=== PATIENT | male | born 2000 | race Caucasian/White ===

== ENCOUNTER 2024-10-31 14:17 | Inpatient (IN) | payer OTHER, SELFPAY ==
[2024-10-31 15:18] VITALS: BMI 24.7
--- OUTSIDE RECORDS SUMMARY | 2024-10-31 15:19 | XMS_ITS | Encounter Summary ---
Author Organization [facility] Address [address] [place] [address] Care Team Providers Care Stoner Out Name Role Phone PcpZeb MD Primary Care Provider [phone] Encounter Details Date Type Department Care Team (Late st Contact Info) Description 08/01/2023 Scan Document - View in Chart [facility] Department [address] [place] [address] Provider, MD Roberto [address] [place] [id number] Social History Tobacco Use Types Packs/Day Years Used Date Smoking Tobacco: Never Assessed Sex and Gender Information Value Date Recorded Sex Assigned at Male 05/27/2023 7:10 AM EDT Legal Sex Male 6:32 AM EDT Gender Identity Male 05/27/2023 7:10 AM EDT Sexual Orientation Straight 05/27/2023 7: 10 AM EDT documented as of this encounter Plan of Treatment Not on file documented as of this encounter Visit Diagnoses Not on filedocumented in this encounter Care Teams Stoner Out Relationship Specialty Start Date End Date PcpZeb MD [address] [place] [address] PCP - General Internal Medicine 05/27/23 documented as of this encounter
--- OUTSIDE RECORDS SUMMARY | 2024-10-31 15:19 | XMS_ITS | Clinical Summary ---
Author Organization [facility] Address [address] [place] [address] Care Team Providers Care Director Nursing Service Name Role Phone Unavailable Primary Care Provider Unavailabl e Social History Tobacco Use Types Packs/Day Years Used Date Smoking Tobacco: Never Assessed Sex and Gender Information Value Date Recorded Sex Assigned at Not on file Legal Sex Male 6:32 AM EDT Gender Identity Not on file Sexual Orientation Not on file Plan of Treatment Not on file
--- OUTSIDE RECORDS SUMMARY | 2024-10-31 15:19 | XMS_ITS | Clinical Summary ---
Author Organization [facility] Address [address] [place] [address] Phone Care Team Providers Care Broadcast Transmitter Operator Name Role Phone Required, No Pcp/Pcp Not Primary Care Provider U navailable Allergies No known active allergies Active Problems Problem Noted Date Diagnosed Date Opioid abuse, continuous 03/28/2023 Social History Tobacco Use Types Packs/Day Years Used Date Smoking Tobacco: Never Assessed Sex and Gender Information Value Date Recorded Sex Assigned at Not on file Legal Sex Male 7:48 PM EST Gender Identity Not on file Sexual Orientation Not on file Last Filed Vital Signs Vital Sign Reading Time Taken Comments Blood Pressure 123/64 03/02/2023 1:59 PM EST Pulse 65 03/02/2023 1:59 PM EST Temperature 36.9 C (98.4 F) 03/02/2023 1:59 PM EST Respiratory Rate 16 03/02/2023 1:59 PM EST Oxygen Saturation 97% 03/02/2023 1:59 PM EST Inhaled Oxygen Concentration - - Weight 69.9 kg (154 lb 1.6 oz) 03/01/2023 8:19 P M EST Height - - Body Mass Index - - Plan of Treatment Health Maintenance Due Date Last Done Comments [facility] Topic HIV Screening 2002 [facility] Topic Hepatitis C Screening 2002 [facility] Topic HPV Vaccines (1 - Male 3-dose series) 2017 [facility] Topic Meningococcal G roup B Conjugate Vaccine (1 of 2 - Standard) 2018 [facility] Topic Tdap Vaccine (1 - Tdap) 2021 [facility] Topic Lipid Profile 5 years 2024 [facility] Topic Influenza (Flu) Seasonal (#1) 2024 [facility] Topic Shingrix (1 of 2) 2052 [facility] Topic HIB Vaccines Completed 2003, 01/25/2003, 2002, Additional history exists Insurance [employer] PPO Care Teams Broadcast Transmitter Operator Relationship Specialty Start Date End Date Required, No Pcp/Pcp Not [address] [place] [address] PCP - General Water Resource Agent 03/01/23
--- OUTSIDE RECORDS SUMMARY | 2024-10-31 15:19 | XMS_ITS | Clinical Summary ---
Author Organization [facility] Address [address] [place] [address] Phone Care Team Providers Care Product Marketing Director Name Role Phone Pcp, Not Required Primary Care Provider Unavaila ble Allergies No known active allergies Medications bupropion HCl (WELLBUTRIN ORAL) Take 200 mg by mouth daily. Active dextroamphetamin e-amphetamine (ADDERALL) 10 mg Tab tablet Take 10 mg by mouth daily. Active escitalopram oxalate (LEXAPRO) 10 MG tablet Take 10 mg by mouth daily. Active Active Problems Problem Noted Date Diagnosed Date Toxic encephalopathy 01/11/2024 Assessment & Plan (01/11/2024 3:05 AM EDT): Close monitoring and treatment of agitation Psychiatry consult Suicidal ideation 01/11/2024 Assessment & Plan (01/11/2024 3:13 AM EDT): On arrival patient reported using the substances to kill himself and wanting to . History changed multiple times. Endorsed feelings of wanting to coming and going but just wanting to get high. - Psychiatry consult to assess need for placement and safe discharge planning. Overdose of sympathomimetic agent 01/10/2024 Assessment & Plan (01/11/2024 3:04 AM EDT): Jarrod is a 23 yo M with hx of depression and possible schizoaffective disorder on Seroquel. He reports ingesting an unknown stimulant this morning and feeling anxious and heart racing. He ultimately presented to ED for persistence of symptoms. He required significant amounts of Ativan which did not have sedative affect. Twelve hours after arrival and after 5 doses of Ativan 2mg heart rate decreased to 100. Blood pressure remains elevated. He became more agitated and physically combative requiring restraints, Haldol, and an additional dose of Ativan - Repeat EKG and CK - Continue Ativan as needed for goal HR < 120 and BP < 160 and for agitation - Reassess need for restraints frequently and remove as soon as patient is not a threat to self and others Central nervous system stimu lant overdose, undetermined intent, initial encounter 09/18/2022 Assessment & Plan (09/18/2022 7:38 PM EDT): Jarrod is a 22 y.o. male with history of ADHD (on Aderral), generalized anxiety, social anxiety, and anxiety tic disorder who is admitted for cardiac monitoring following intentional ingestion of Propylhexedrine (7 bottles of 200mg) taking over the course of about 7 hours, preceded by caffeine ingestion. He reports recreational intentional ingestion, denies SI. Case discussed with ED attending and poison control. Poison control recommended monitoring on telemetry until his HR is normalized, they anticipate that he will continue to improve without worsening or new symptoms. They would not anticipate arrhythmias, or QTc/QRS changes at this time. - He has been monitored for >12 hours in the emergency room with improvement in his HR, BP, and agitation. - Potassium initially low, repleted and normalized, consider recheck in AM - EKG x2 in ED, admit on telemetry - s/p 3L fluids in ED, admit on mIVF with KCl - Ativan 1mg PO PRN - Hold Wellbutrin, Hold Aderral Section 12 placed in ED with sitter, will have psychiatry consult regarding disposition. Consider substance use counseling/referral in AM. Attention deficit hyperactivity disorder 014 Overview (05/04/2014): Attention deficit hyperactivity disorder Immunizations Immunization Administration Dates Next Due BCG 2002 DT 08/15/2006 DTaP, unspecified formulation 07/31/2013 ,01/08/2004,01/25/2003,11/22,2002 Hepatitis B, unspecified formulation 01/27/2003, 2002,2002 Hib, unspecified formulation 01/08/2004, 01/25/2003,2002,09/22 Influenza Nasal, Unspecified Formulation 02/05/2014 Influenza Quadrivalent Prese rvative Free IM 11/14/2014 MMR 08/15/2006,07/15/2003 Meningococcal MCV4P 11/14/2014 Pneumococcal, Unspecified Formulation 06/08/2005 Polio, Unspecified Formulation 4,01/08/2004,06/27/2003,01/25,2002,2002,2002 Varicella 10/04/2014,10/08/2003 Social History Tobacco Use Types Packs/Day Years Used Date Smoking Tobacco: Never Assessed Digital Access Answer Date Recorded No 09/18/2022 No 09/18/2022 Reliable internet access at home? Not on file 09/18/2022 Device with a working camera? Not on file Intimate Partner Violence Answer Date R ecorded Are you denied basic needs s uch as food, clothing, or medical care? No 07/29/2024 In the past 12 months have y ou been in a relationship with a person who hurts, threatens, or tries to control you? No 07/29/2024 Are you denied basic needs s uch as food, clothing, or medical care? No 07/29/2024 In the past 12 months have y ou been in a relationship with a person who hurts, threatens, or tries to control you? No 07/29/2024 Sex and Gender Information Value Date Recorded Sex Assigned at Male 01/10/2024 1:40 PM EDT Legal Sex Male 3:26 PM EDT Gender Identity Male 01/10/2024 1:40 PM EDT Sexual Orientation Straight 01/10/2024 1: 40 PM EDT Last Filed Vital Signs Vital Sign Reading Time Taken Comments Blood Pressure 134/64 07/29/2024 9:27 AM EDT Pulse 100 07/29/2024 9:27 AM EDT Temperature 36.9 C (98.4 F) 07/29/2024 6:18 AM EDT Respiratory Rate 16 07/29/2024 9:27 AM EDT Oxygen Saturation 99% 07/29/2024 9:27 AM EDT Inhaled Oxygen Concentration - - Weight 70.3 kg (155 lb) 01/10/2024 1:15 PM EDT Height 177.8 cm (5' 10 ) 11/13/2022 2:35 PM EDT Body Mass Index 22.24 11/13/2022 2:35 PM EDT Plan of Treatment Health Maintenance Due Date Last Done Comments Adult Td,Tdap Booster 2002 DEPRESSION SCREENING 2014 SMOKING Hx and SMOKELESS TOBACCO SCREENING 07/05/2015 HPV VACCINES (1 - Male 3-dose series) 2017 MENINGOCOCCAL VACCINES (B) (1 of 2 - Standard) 2018 HEPATITIS C SCREENING 2020 HIV ONE-TIME SCREENING (18-65 YEARS) 2020 COVID-19 VACCINE ( season) 2023 HIB VACCINES Completed 01/08/2004, 01/12, 2002, Additional history exists PNEUMOCOCCAL VACCINES (0-49 years) Aged Out 06/08/2005 No longer eligible based on patient's age to complete this topic MENINGOCOCCAL VACCINES (ACWY) Aged Out 11/14/2014 No longer eligible based on patient's age to complete this topic HEPATITIS A VACCINES Aged Out No long er eligible based on patient's age to complete this topic Medical Devices Not on file Insurance Social Tables [facility]PO [facility] [place]PO [place] [facility] [place] Advance Directives For more information, please contact: [phone] (9AM - 5PM [facility], Tuesday-Tuesday) * Full Code (Latest Code Status on File) Date Activated Date Inactivated Comments 09/18/2022 9:49 PM Question Answer Comments Code Status Confirmed With: Patient Code Status Communicated To: Inpatient Attending Care Teams Product Marketing Director Relationship Specialty Start Date End Date Pcp, Not Required [address] [place] [id number] PCP - General 01/10/24 Additional Source Comments The information contained in this document represents components of the legal health record. It is not the complete legal health record.[facility]
--- OUTSIDE RECORDS SUMMARY | 2024-10-31 15:19 | XMS_ITS | Clinical Summary ---
Author Organization [facility] Address [address] [place] [address] Care Team Providers Care Branner Machine Tender Name Role Phone No, Pcp SPINNING SUPERVISOR Primary Care Provider Unavailabl e Allergies No known active allergies Medications No known medications Immunizations Name Administration Dates Next Due Flucelvax Trivalent PFS IM; Without Preservative (18+ mos) 12/28/2021 Gardasil 9 Prefilled Syringe 12/28/2021 Social History Tobacco Use Types Packs/Day Years Used Date Smoking Tobacco: Never Smokeless Tobacco: Never Alcohol Use Standard Drinks/Week Comments No 0 (1 standard drink = 0.6 oz pur e alcohol) Sex and Gender Information Value Date Recorded Sex Assigned at Not on file Legal Sex Male 3:30 PM EDT Gender Identity Not on file Sexual Orientation Not on file Last Filed Vital Signs Vital Sign Reading Time Taken Comments Blood Pressure 92/50 09/07/2017 4:59 PM EDT Pulse 69 09/07/2017 4:59 PM EDT Temperature 36.3 C (97.3 F) 09/07/2017 4:59 PM EDT Respiratory Rate 14 09/07/2017 4:59 PM EDT Oxygen Saturation 97% 09/07/2017 4:59 PM EDT Inhaled Oxygen Concentration - - Weight 59.4 kg (131 lb) 09/07/2017 4:59 PM EDT Height 172.7 cm (5' 8 ) 09/07/2017 4:59 PM EDT Body Mass Index 19.92 09/07/2017 4:59 PM EDT Plan of Treatment Health Maintenance Due Date Last Done Comments Depression: Screening Annual ly using PHQ-2/9 in Adults 18 yrs or above (or HM Modifier)([facility]) 2020 Hepatitis C Virus Infection in Adolescents and Adults: Screening (or Modifier) ([facility]) 2020 SDOH Screening Reminder: Annually for all adults ([facility]) 2020 Tobacco Smoking Cessation: i n Adults excluding Women: Behavioral and Pharmacotherapy Interventions ([facility]) 2020 DTaP/Tdap/Td Vaccines ([facility]) (1 - Tdap) 2021 08/15/2006 COVID-19 Vaccine Screening: Initial Series and Booster Status ([facility]) ( - 2023- season) 2023 Flu Vaccination: Yearly for ages 18mos through 64 years (or Modifier)([facility]) 10/12/2024 12/28/2021 Zoster/Shingles Vaccine Seri es Screening: Adults aged 18+ yrs (or HM Modifiers)([facility]) (1 of 2) 2052 10/04/2014, 10/08/2003 Pneumococcal Vaccination Screening: Pts 0-19 & 19-49 yrs of age ([facility]) Aged Out No longer eligible based on patient's age to complete this topic Medical Devices Not on file Insurance [employer] Care Teams Branner Machine Tender Relationship Specialty Start Date End Date No, Pcp, SPINNING SUPERVISOR N/A Do not use PCP - General 09/07/17
[2024-10-31 16:15] VITALS: BP 120/79; PULSE 85; RESP 16; TEMP 36.6; O2SAT 98
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
[2024-10-31 20:00] VITALS: BP 129/61; PULSE 91; TEMP 36.4; O2SAT 98
[2024-10-31] MEDS: Buprenorphine/Naloxone 4/1 mg FILM 1 FILM BUCCAL (21:45)
[2024-11-01 07:00] VITALS: BMI 25.1
[2024-11-01 08:00] VITALS: BP 149/76; PULSE 60; RESP 16; TEMP 36.7; O2SAT 97
[2024-11-01 08:39] LABS: Hemoglobin A1C 134.0101 umol/L; Total Hemoglobin (HGBA1C) 4036.9904 umol/L
[2024-11-01 08:43] LABS: Alanine Aminotransferase 110 U/L (0-40); Albumin Level 4.7 g/dL (3.5-5.0); Alkaline Phosphatase 55 U/L (39-117); Anion Gap 12 (12-20); Aspartate Amino Transferase 43 U/L (5-37); Blood Urea Nitrogen 13 mg/dL (9-16); Calcium 9.5 mg/dL (8.4-10.2); Carbon Dioxide 28 mmol/L (22-29); Chloride 106 mmol/L (96-108); Cholesterol 134 mg/dL (<200); Creatinine Clr Calc Pharmacy 111.8; Estimated Glomerular Filt Rate > 60; HDL Cholesterol 46 mg/dL (>40); Potassium 4.1 mmol/L (3.3-5.1); Sodium 142 mmol/L (135-145); Total Protein 7.0 g/dL (6.5-8.0); Triglycerides 83 mg/dL (<150)
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
[2024-11-01 10:59] LABS: Free T4 (Free Thyroxine) 1.15 ng/dL (0.71-1.85)
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
[2024-11-01 20:00] VITALS: BP 125/70; PULSE 78; RESP 16; TEMP 36.4; O2SAT 99
[2024-11-01] MEDS: Buprenorphine/Naloxone 4/1 mg FILM 1 FILM BUCCAL (20:54)
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
[2024-11-02 08:00] VITALS: BP 118/57; PULSE 74; RESP 16; TEMP 36.4; O2SAT 95
--- NOTE | 2024-11-02 10:00 | P.PNPSI_ITS ---
Subjective Subjective Date of Service: 11/02/24 Reason For Visit: depression, unspecified Subjective Notes: Conditional Voluntary Medical Problems Affecting Mental Status: No Interim History: Pt slept six hours last night. discussed request to increase suboxone. Appears ambivalent about this-changed his mind frequently during this discussion. Asks to increase to 6 mg. Will asks addiction medicine to consult to further discuss with pt. Pt will do a phone screen for his next program, he appears reluctant to make this call however tells team he will complete it today with [facility]. Presentation overall is quiet, calm, withdrawn Medication Compliance: Yes Side effects from medications: No Attending Groups: Intermittent Review of Systems Acute medical concerns: No Medical Review of Systems: unchanged Review of Systems Review of Systems Denies Mental Status Exam Mental Status Exam Patient Appearance: Appropriate Patient Orientation: Person, Place, Time and Situation Level of Consciousness: Alert Patient Behavior: Passive, Distractible and Isolative Mood Description: Withdrawn and Blunted Affect Description: Withdrawn and Blunted Patient Cognition Impaired: No Ability to Follow Directions: Fair Speech Pattern: Spontaneous Speech Memory Description: Episodic Impaired Hallucinations: None Delusions: Not Present Perceptual Disturbances: Derealization Thought Process: Distracted Thought Content: positive for Circumstantial and positive for Suicidal Ideation (denies) Judgement: Fair Diagnostics Vital Signs (24Hr): Vital Signs - 24 hr 11/01/24 20:00 11/02/24 08:00 Temperature 97.6 F 97.5 F Pulse Rate 78 74 Respiratory Rate 16 16 Blood Pressure 125/70 118/57 L Pulse Oximetry 99 95 Oxygen Delivery Method Room Air Room Air BMI result Body Mass Index 25.1 Labs 11/01/24 08:10 Labs: Laboratory Results - last 48 hr 11/01/24 08:10 Sodium 142 Potassium 4.1 Chloride 106 Carbon Dioxide 28 Anion Gap 12 BUN 13 Creatinine 1.07 Estim Creat Clear Calc 111.8 Estimated GFR > 60 Random Glucose 97 Estimat Average Glucose 103 Hemoglobin A1c % 5.2 Calcium 9.5 Total Bilirubin 0.8 AST 43 H ALT 110 H Alkaline Phosphatase 55 Total Protein 7.0 Albumin 4.7 Triglycerides 83 Cholesterol 134 LDL Cholesterol, Calc 72 HDL Cholesterol 46 TSH 4.37 H Free T4 1.15 Medications Medications Current Medications Acetaminophen (Acetaminophen 325 Mg Tablet) 650 mg PO Q6H PRN On Hold: 11/01/24 21:14 PRN Reason: Headache/Pain, Scale 1-10 Al Hydroxide/Mg Hydroxide (Magnesium Hydrox/Alum Hydrox 30 Ml Oral.Susp) 30 ml PO Q6H PRN PRN Reason: Heartburn/Nausea Buprenorphine/Naloxone (Buprenorphine/Naloxone 4/1 Mg Film) 1 film BUCCAL BEDTIME [facility] Last Admin: 11/01/24 20:54 Dose: 1 film Folic Acid (Folic Acid 1 Mg Tablet) 1 mg PO DAILY [facility] Last Admin: 11/02/24 08:35 Dose: 1 mg Hydroxyzine HCl (Hydroxyzine Hcl 25 Mg Tablet) 25 mg PO Q6H PRN PRN Reason: mild anxiety Magnesium Hydroxide (Milk Of Magnesia 30 Ml Oral.Susp) 30 ml PO DAILY PRN PRN Reason: Constipation Melatonin (Melatonin 3 Mg Tablet) 3 mg PO BEDTIME MRX1 PRN PRN Reason: Insomnia Nicotine (Nicotine 21 Mg Patch.Td24) 21 mg TRANSDERMA DAILY PRN PRN Reason: smoking cessation Nicotine Polacrilex (Nicotine Polacrilex 2 Mg Gum) 4 mg BUCCAL Q2H PRN PRN Reason: Nicotine Cravings Olanzapine (Olanzapine 5 Mg Tablet) 5 mg PO TID PRN PRN Reason: agitation Thiamine HCl (Thiamine Hcl 100 Mg Tablet) 100 mg PO DAILY [facility] Last Admin: 11/02/24 08:35 Dose: 100 mg Allergies Allergies Allergy/AdvReac Type Severity Reaction Status Date / Time trazodone Allergy Unknown Verified 10/31/24 15:19 Assessment & Plan Assessment & Plan (1) Transaminitis: Status: Acute Code(s): R74.01 - Elevation of levels of liver transaminase levels Plan Patient is a 24-year-old male with only reported medical history of alcohol use in the past (patient states he has been clean for the last 6 months and usually drank 6 pack beer a day), substance use disorder/ cocaine use last dose 3 months ago. Patient also indicates that he vapes nicotine and is accepting NRT at this time. Patient denies any other medical history or surgeries in the past. Patient denies any allergies to anything. Patient provided short answers to questions asked without elaboration. Currently patient denies any active or acute medical problems. The following medical problems were noted: Transaminitis Patient does report history of alcohol use last drink was 6 months prior Patient has been in a sober house for about a week prior to coming into the hospital Repeat hepatic profile and hepatitis testing, may need ultrasound and GI consultation Avoid Tylenol Subclinical hypothyroidism TSH 4.37 and free T4 1.15 Patient does not meet the criteria for treatment with levothyroxine Labs we will need to be repeated in 4-6 weeks No goiter or nodules found on exam with the thyroid gland History of alcohol use disorder Patient reports last drink was 6 months prior No history of seizures or withdrawal Thiamine and folic acid recommended Substance use disorder on Suboxone Confirmation of Suboxone dose needed through pharmacy/nursing Continuation Suboxone per Psychiatry Tobacco Dependence Pt counsled on the benefits of cessation NRT in place Hospitalist will continue to follow to review repeat labs and need for further intervention. We appreciate this consultation! 11/02: Continue tx Encourage transition to next phase of his treatment Reason for continued inpatient stay Substantial Risk for: rapid decompensation Time Spent With Patient Time: Total time managing care of this patient today ____ minutes.
--- NOTE | 2024-11-02 18:15 | MHC.RECOVRN ---
Met with pt in 512- after consult placed to Addiction Medicine for pt request to increase suboxone.? Pt was admitted to ? for depression and suicide attempt on cough syrup after the of a close friend from highschool. Pt currently resides in a sober living environment.? ? Upon assessment pt is laying in bed looking straight at the ceiling. When his name is called he hops up quickly and sits on the side of the bed. He is agreeable to meeting, however eye contact is poor and pt is guarded and appears confused and with delayed responses.? When asked why he is interested in increasing his suboxone dosage the pt reports ?I think i?m developing a tolerance, I don?t know?. Pt then reports he wants to go increase to 6mg, then 8mg. Pt was asked his substance usage history to which he reports using alcohol, cocaine, Percocet and Xanax, intranasally, since approximately 17 years old. He also reports a history of withdrawal symptoms including restlessness, ?being sick?, and irritability. Pt denies any length of sobriety prior to his recent SA with cough syrup and reports at least one prior overdose requiring the use of Narcan.? At this point the pt states, ?nevermind, I?ll stay at 4mg?. TW informed pt that if he wanted an increase it would be discussed with the Addiction Medicine provider for evaluation to which he responded, ?no, I?m fine?. Pt then left the room and began walking down the hallway.? TW to relay information to ROCHELLE Ventura. No changes have been made at this time. TW to offer riding coach referral and other resources after pt is psychiatrically stable. TW available for for further questions, concerns, or support relating to substance use and recovery.?
[2024-11-02] MEDS: Buprenorphine/Naloxone 4/1 mg FILM 1 FILM BUCCAL (20:54)
[2024-11-02 21:05] VITALS: BP 137/72; PULSE 90; RESP 16; TEMP 37.3; O2SAT 97
[2024-11-03 08:00] VITALS: BP 133/66; PULSE 80; TEMP 36.9; O2SAT 96
--- NOTE | 2024-11-03 10:40 | HO.PSYCHPN ---
Subjective Subjective Date of Service: 11/03/24 Reason For Visit: depression, unspecified Interim History: Denies SI,HI,AH,VH Spending time in his room for most of the shift-some time seen in milieu. Denies questions or concerns today Medication Compliance: Yes Side effects from medications: No Attending Groups: Intermittent Review of Systems Acute medical concerns: No Review of Systems Review of Systems denies Mental Status Exam Mental Status Exam Patient Appearance: Appropriate Patient Orientation: Person, Place, Time and Situation Level of Consciousness: Alert Patient Behavior: Passive, Distractible and Isolative Mood Description: Withdrawn and Blunted Affect Description: Withdrawn and Blunted Patient Cognition Impaired: No Ability to Follow Directions: Fair Speech Pattern: Spontaneous Speech Memory Description: Episodic Impaired Hallucinations: None Delusions: Not Present Perceptual Disturbances: Derealization Thought Process: Distracted Thought Content: positive for Circumstantial and positive for Suicidal Ideation (denies) Judgement: Fair Diagnostics Vital Signs (24Hr): Vital Signs - 24 hr 11/02/24 21:05 Temperature 99.1 F Pulse Rate 90 Respiratory Rate 16 Blood Pressure 137/72 Pulse Oximetry 97 Oxygen Delivery Method Room Air BMI result Body Mass Index 25.1 Labs 11/01/24 08:10 Labs: Laboratory Results - last 48 hr 11/01/24 08:10 Free T4 1.15 Medications Medications Current Medications Acetaminophen (Acetaminophen 325 Mg Tablet) 650 mg PO Q6H PRN On Hold: 11/01/24 21:14 PRN Reason: Headache/Pain, Scale 1-10 Al Hydroxide/Mg Hydroxide (Magnesium Hydrox/Alum Hydrox 30 Ml Oral.Susp) 30 ml PO Q6H PRN PRN Reason: Heartburn/Nausea Buprenorphine/Naloxone (Buprenorphine/Naloxone 4/1 Mg Film) 1 film BUCCAL BEDTIME [facility] Last Admin: 11/02/24 20:54 Dose: 1 film Folic Acid (Folic Acid 1 Mg Tablet) 1 mg PO DAILY [facility] Last Admin: 11/03/24 08:58 Dose: Not Given Hydroxyzine HCl (Hydroxyzine Hcl 25 Mg Tablet) 25 mg PO Q6H PRN PRN Reason: mild anxiety Magnesium Hydroxide (Milk Of Magnesia 30 Ml Oral.Susp) 30 ml PO DAILY PRN PRN Reason: Constipation Melatonin (Melatonin 3 Mg Tablet) 3 mg PO BEDTIME MRX1 PRN PRN Reason: Insomnia Nicotine (Nicotine 21 Mg Patch.Td24) 21 mg TRANSDERMA DAILY PRN PRN Reason: smoking cessation Nicotine Polacrilex (Nicotine Polacrilex 2 Mg Gum) 4 mg BUCCAL Q2H PRN PRN Reason: Nicotine Cravings Olanzapine (Olanzapine 5 Mg Tablet) 5 mg PO TID PRN PRN Reason: agitation Thiamine HCl (Thiamine Hcl 100 Mg Tablet) 100 mg PO DAILY [facility] Last Admin: 11/03/24 08:58 Dose: Not Given Allergies Allergies Allergy/AdvReac Type Severity Reaction Status Date / Time trazodone Allergy Unknown Verified 10/31/24 15:19 Assessment & Plan Assessment & Plan (1) Transaminitis: Status: Acute Code(s): R74.01 - Elevation of levels of liver transaminase levels (2) Depression: Status: Acute Code(s): F32.A - Depression, unspecified (3) Suicide ideation: Status: Acute Code(s): R45.851 - Suicidal ideations Plan Patient is a 24-year-old male with only reported medical history of alcohol use in the past (patient states he has been clean for the last 6 months and usually drank 6 pack beer a day), substance use disorder/ cocaine use last dose 3 months ago. Patient also indicates that he vapes nicotine and is accepting NRT at this time. Patient denies any other medical history or surgeries in the past. Patient denies any allergies to anything. Patient provided short answers to questions asked without elaboration. Currently patient denies any active or acute medical problems. The following medical problems were noted: Transaminitis Patient does report history of alcohol use last drink was 6 months prior Patient has been in a sober house for about a week prior to coming into the hospital Repeat hepatic profile and hepatitis testing, may need ultrasound and GI consultation Avoid Tylenol Subclinical hypothyroidism TSH 4.37 and free T4 1.15 Patient does not meet the criteria for treatment with levothyroxine Labs we will need to be repeated in 4-6 weeks No goiter or nodules found on exam with the thyroid gland History of alcohol use disorder Patient reports last drink was 6 months prior No history of seizures or withdrawal Thiamine and folic acid recommended Substance use disorder on Suboxone Confirmation of Suboxone dose needed through pharmacy/nursing Continuation Suboxone per Psychiatry Tobacco Dependence Pt counsled on the benefits of cessation NRT in place Hospitalist will continue to follow to review repeat labs and need for further intervention. We appreciate this consultation! 11/03: Continue tx Reason for continued inpatient stay Substantial Risk for: rapid decompensation Time Spent With Patient Time: Total time managing care of this patient today ____ minutes.
[2024-11-03 20:00] VITALS: BP 126/70; PULSE 81; RESP 16; TEMP 36.6; O2SAT 100
[2024-11-03] MEDS: Buprenorphine/Naloxone 4/1 mg FILM 1 FILM BUCCAL (20:59)
[2024-11-04 08:00] VITALS: RESP 14
--- NOTE | 2024-11-04 13:27 | P.PNPSI_ITS ---
Subjective Subjective Date of Service: 11/04/24 Reason For Visit: depression, unspecified Subjective Notes: Conditional Voluntary Interim History: Today, pt seen briefly in the milieu-isolative. Continues to spend a good deal of time in his room. Denies sx of concern, however appears to be responding to internal stimuli Medication Compliance: Yes Side effects from medications: No Attending Groups: No Review of Systems Acute medical concerns: No Medical Review of Systems: unchanged Review of Systems Review of Systems Denies sx, issues, concerns today Mental Status Exam Mental Status Exam Patient Appearance: Appropriate Patient Orientation: Person, Place, Time and Situation Level of Consciousness: Alert Patient Behavior: Passive, Distractible and Isolative Mood Description: Withdrawn and Blunted Affect Description: Withdrawn and Blunted Patient Cognition Impaired: No Ability to Follow Directions: Fair Speech Pattern: Spontaneous Speech Memory Description: Episodic Impaired Hallucinations: Auditory Delusions: Not Present Perceptual Disturbances: Derealization Thought Process: Distracted Thought Content: positive for Circumstantial and positive for Suicidal Ideation (denies) Judgement: Fair Diagnostics Vital Signs (24Hr): Vital Signs - 24 hr 11/03/24 20:00 11/04/24 08:00 Temperature 97.8 F Pulse Rate 81 Respiratory Rate 16 14 Blood Pressure 126/70 Pulse Oximetry 100 Oxygen Delivery Method Room Air BMI result Body Mass Index 25.1 Labs 11/01/24 08:10 Medications Medications Current Medications Acetaminophen (Acetaminophen 325 Mg Tablet) 650 mg PO Q6H PRN On Hold: 11/01/24 21:14 PRN Reason: Headache/Pain, Scale 1-10 Al Hydroxide/Mg Hydroxide (Magnesium Hydrox/Alum Hydrox 30 Ml Oral.Susp) 30 ml PO Q6H PRN PRN Reason: Heartburn/Nausea Buprenorphine/Naloxone (Buprenorphine/Naloxone 4/1 Mg Film) 1 film BUCCAL BEDTIME [facility] Last Admin: 11/03/24 20:59 Dose: 1 film Folic Acid (Folic Acid 1 Mg Tablet) 1 mg PO DAILY [facility] Last Admin: 11/04/24 08:40 Dose: Not Given Hydroxyzine HCl (Hydroxyzine Hcl 25 Mg Tablet) 25 mg PO Q6H PRN PRN Reason: mild anxiety Magnesium Hydroxide (Milk Of Magnesia 30 Ml Oral.Susp) 30 ml PO DAILY PRN PRN Reason: Constipation Melatonin (Melatonin 3 Mg Tablet) 3 mg PO BEDTIME MRX1 PRN PRN Reason: Insomnia Nicotine (Nicotine 21 Mg Patch.Td24) 21 mg TRANSDERMA DAILY PRN PRN Reason: smoking cessation Nicotine Polacrilex (Nicotine Polacrilex 2 Mg Gum) 4 mg BUCCAL Q2H PRN PRN Reason: Nicotine Cravings Olanzapine (Olanzapine 5 Mg Tablet) 5 mg PO TID PRN PRN Reason: agitation Thiamine HCl (Thiamine Hcl 100 Mg Tablet) 100 mg PO DAILY [facility] Last Admin: 11/04/24 08:40 Dose: Not Given Allergies Allergies Allergy/AdvReac Type Severity Reaction Status Date / Time trazodone Allergy Unknown Verified 10/31/24 15:19 Assessment & Plan Assessment & Plan (1) Transaminitis: Status: Acute Code(s): R74.01 - Elevation of levels of liver transaminase levels (2) Depression: Status: Acute Code(s): F32.A - Depression, unspecified (3) Suicide ideation: Status: Acute Code(s): R45.851 - Suicidal ideations Plan Patient is a 24-year-old male with only reported medical history of alcohol use in the past (patient states he has been clean for the last 6 months and usually drank 6 pack beer a day), substance use disorder/ cocaine use last dose 3 months ago. Patient also indicates that he vapes nicotine and is accepting NRT at this time. Patient denies any other medical history or surgeries in the past. Patient denies any allergies to anything. Patient provided short answers to questions asked without elaboration. Currently patient denies any active or acute medical problems. The following medical problems were noted: Transaminitis Patient does report history of alcohol use last drink was 6 months prior Patient has been in a sober house for about a week prior to coming into the hospital Repeat hepatic profile and hepatitis testing, may need ultrasound and GI consultation Avoid Tylenol Subclinical hypothyroidism TSH 4.37 and free T4 1.15 Patient does not meet the criteria for treatment with levothyroxine Labs we will need to be repeated in 4-6 weeks No goiter or nodules found on exam with the thyroid gland History of alcohol use disorder Patient reports last drink was 6 months prior No history of seizures or withdrawal Thiamine and folic acid recommended Substance use disorder on Suboxone Confirmation of Suboxone dose needed through pharmacy/nursing Continuation Suboxone per Psychiatry Tobacco Dependence Pt counsled on the benefits of cessation NRT in place Hospitalist will continue to follow to review repeat labs and need for further intervention. We appreciate this consultation! 8/24: Continue tx. Support transition to residential program Reason for continued inpatient stay Substantial Risk for: rapid decompensation Time Spent With Patient Time: Total time managing care of this patient today ____ minutes.
[2024-11-04 19:36] VITALS: BP 133/70; PULSE 82; TEMP 36.4; O2SAT 98
[2024-11-04] MEDS: Buprenorphine/Naloxone 4/1 mg FILM 1 FILM BUCCAL (20:17)
[2024-11-05 08:00] VITALS: BP 131/61; PULSE 73; RESP 18; TEMP 36.6; O2SAT 98
--- NOTE | 2024-11-05 18:24 | HO.PSYCHPN ---
Subjective Subjective Date of Service: 11/05/24 Reason For Visit: depression, unspecified Subjective Notes: Conditional Voluntary Healthcare Proxy: No Guardianship: No Medical Problems Affecting Mental Status: No Interim History: Pt denies SI,HI,AH, VH There are no sx of acute fide or psychosis He reports medications are effective and without SE He reports feeling comfortable on the unit and awaits placement acceptance He is not attending groups and remains for the most part isolative in his room Medication Compliance: Yes Side effects from medications: No Attending Groups: No Review of Systems Acute medical concerns: No Medical Review of Systems: unchanged Review of Systems Review of Systems Denies Mental Status Exam Mental Status Exam Patient Appearance: Appropriate Patient Orientation: Person, Place, Time and Situation Level of Consciousness: Alert Patient Behavior: Passive, Distractible and Isolative Mood Description: Withdrawn and Blunted Affect Description: Withdrawn and Blunted Patient Cognition Impaired: No Ability to Follow Directions: Fair Speech Pattern: Spontaneous Speech Memory Description: Episodic Impaired Hallucinations: Auditory Delusions: Not Present Perceptual Disturbances: Derealization Thought Process: Distracted Thought Content: positive for Circumstantial and positive for Suicidal Ideation (denies) Judgement: Fair Diagnostics Vital Signs (24Hr): Vital Signs - 24 hr 11/04/24 19:36 11/05/24 08:00 Temperature 97.5 F 97.9 F Pulse Rate 82 73 Respiratory Rate 18 Blood Pressure 133/70 131/61 Pulse Oximetry 98 98 Oxygen Delivery Method Room Air Room Air BMI result Body Mass Index 25.1 Labs 11/06/24 13:25 11/01/24 08:10 Medications Medications Current Medications Acetaminophen (Acetaminophen 325 Mg Tablet) 650 mg PO Q6H PRN On Hold: 11/01/24 21:14 PRN Reason: Headache/Pain, Scale 1-10 Al Hydroxide/Mg Hydroxide (Magnesium Hydrox/Alum Hydrox 30 Ml Oral.Susp) 30 ml PO Q6H PRN PRN Reason: Heartburn/Nausea Buprenorphine/Naloxone (Buprenorphine/Naloxone 4/1 Mg Film) 1 film BUCCAL BEDTIME [facility]ON[facility] Last Admin: 11/04/24 20:17 Dose: 1 film Folic Acid (Folic Acid 1 Mg Tablet) 1 mg PO DAILY [facility] Last Admin: 11/05/24 08:34 Dose: Not Given Hydroxyzine HCl (Hydroxyzine Hcl 25 Mg Tablet) 25 mg PO Q6H PRN PRN Reason: mild anxiety Magnesium Hydroxide (Milk Of Magnesia 30 Ml Oral.Susp) 30 ml PO DAILY PRN PRN Reason: Constipation Melatonin (Melatonin 3 Mg Tablet) 3 mg PO BEDTIME MRX1 PRN PRN Reason: Insomnia Nicotine (Nicotine 21 Mg Patch.Td24) 21 mg TRANSDERMA DAILY PRN PRN Reason: smoking cessation Nicotine Polacrilex (Nicotine Polacrilex 2 Mg Gum) 4 mg BUCCAL Q2H PRN PRN Reason: Nicotine Cravings Last Admin: 11/04/24 20:27 Dose: 4 mg Olanzapine (Olanzapine 5 Mg Tablet) 5 mg PO TID PRN PRN Reason: agitation Thiamine HCl (Thiamine Hcl 100 Mg Tablet) 100 mg PO DAILY [facility] Last Admin: 11/05/24 08:34 Dose: Not Given Allergies Allergies Allergy/AdvReac Type Severity Reaction Status Date / Time trazodone Allergy Unknown Verified 10/31/24 15:19 Assessment & Plan Assessment & Plan (1) Transaminitis: Status: Acute Code(s): R74.01 - Elevation of levels of liver transaminase levels (2) Depression: Status: Acute Code(s): F32.A - Depression, unspecified (3) Suicide ideation: Status: Acute Code(s): R45.851 - Suicidal ideations Plan Patient is a 24-year-old male with only reported medical history of alcohol use in the past (patient states he has been clean for the last 6 months and usually drank 6 pack beer a day), substance use disorder/ cocaine use last dose 3 months ago. Patient also indicates that he vapes nicotine and is accepting NRT at this time. Patient denies any other medical history or surgeries in the past. Patient denies any allergies to anything. Patient provided short answers to questions asked without elaboration. Currently patient denies any active or acute medical problems. The following medical problems were noted: Transaminitis Patient does report history of alcohol use last drink was 6 months prior Patient has been in a sober house for about a week prior to coming into the hospital Repeat hepatic profile and hepatitis testing, may need ultrasound and GI consultation Avoid Tylenol Subclinical hypothyroidism TSH 4.37 and free T4 1.15 Patient does not meet the criteria for treatment with levothyroxine Labs we will need to be repeated in 4-6 weeks No goiter or nodules found on exam with the thyroid gland History of alcohol use disorder Patient reports last drink was 6 months prior No history of seizures or withdrawal Thiamine and folic acid recommended Substance use disorder on Suboxone Confirmation of Suboxone dose needed through pharmacy/nursing Continuation Suboxone per Psychiatry Tobacco Dependence Pt counsled on the benefits of cessation NRT in place Hospitalist will continue to follow to review repeat labs and need for further intervention. We appreciate this consultation! 11/04: Continue tx. Support transition to residential program 11/05: Continue tx Continues to refuse psychopharmacology intervention Residential placement pending Reason for continued inpatient stay Substantial Risk for: rapid decompensation Time Spent With Patient Time: Total time managing care of this patient today ____ minutes.
[2024-11-05 20:00] VITALS: BP 123/62; PULSE 84; TEMP 36.8; O2SAT 99
[2024-11-05] MEDS: Buprenorphine/Naloxone 4/1 mg FILM 1 FILM BUCCAL (20:26)
[2024-11-06 08:00] VITALS: BP 129/74; PULSE 76; RESP 18; TEMP 36.4; O2SAT 97
--- NOTE | 2024-11-06 10:38 | P.PNPSI_ITS ---
Subjective Subjective Date of Service: 11/06/24 Reason For Visit: depression, unspecified Subjective Notes: Conditional Voluntary Healthcare Proxy: No Guardianship: No Medical Problems Affecting Mental Status: No Interim History: Pt will discharge to his program on 11/07, [facility] [place]. He is pleased with this news, reports he is familiar with the program and the team he will work with. Denies SI,HI,AH,VH No sx of acute fide or psychosis Pt continues to decline psychopharmacology interventions. Medication Compliance: Yes Side effects from medications: No Attending Groups: No Review of Systems Acute medical concerns: No Medical Review of Systems: unchanged Review of Systems Review of Systems Denies Mental Status Exam Mental Status Exam Patient Appearance: Appropriate Patient Orientation: Person, Place, Time and Situation Level of Consciousness: Alert Patient Behavior: Passive, Distractible and Isolative Mood Description: Withdrawn and Blunted Affect Description: Withdrawn and Blunted Patient Cognition Impaired: No Ability to Follow Directions: Fair Speech Pattern: Spontaneous Speech Memory Description: Episodic Impaired Delusions: Not Present Perceptual Disturbances: Derealization Thought Process: Distracted Thought Content: positive for Circumstantial and positive for Suicidal Ideation (denies) Judgement: Fair Diagnostics Vital Signs (24Hr): Vital Signs - 24 hr 11/05/24 20:00 11/06/24 08:00 Temperature 98.2 F 97.5 F Pulse Rate 84 76 Respiratory Rate 18 Blood Pressure 123/62 129/74 Pulse Oximetry 99 97 Oxygen Delivery Method Room Air Room Air BMI result Body Mass Index 25.1 Labs 11/06/24 13:25 11/01/24 08:10 Medications Medications Current Medications Acetaminophen (Acetaminophen 325 Mg Tablet) 650 mg PO Q6H PRN On Hold: 11/01/24 21:14 PRN Reason: Headache/Pain, Scale 1-10 Al Hydroxide/Mg Hydroxide (Magnesium Hydrox/Alum Hydrox 30 Ml Oral.Susp) 30 ml PO Q6H PRN PRN Reason: Heartburn/Nausea Buprenorphine/Naloxone (Buprenorphine/Naloxone 4/1 Mg Film) 1 film BUCCAL BEDTIME [facility] Last Admin: 11/05/24 20:26 Dose: 1 film Folic Acid (Folic Acid 1 Mg Tablet) 1 mg PO DAILY [facility] Last Admin: 11/06/24 09:25 Dose: Not Given Hydroxyzine HCl (Hydroxyzine Hcl 25 Mg Tablet) 25 mg PO Q6H PRN PRN Reason: mild anxiety Magnesium Hydroxide (Milk Of Magnesia 30 Ml Oral.Susp) 30 ml PO DAILY PRN PRN Reason: Constipation Melatonin (Melatonin 3 Mg Tablet) 3 mg PO BEDTIME MRX1 PRN PRN Reason: Insomnia Nicotine (Nicotine 21 Mg Patch.Td24) 21 mg TRANSDERMA DAILY PRN PRN Reason: smoking cessation Nicotine Polacrilex (Nicotine Polacrilex 2 Mg Gum) 4 mg BUCCAL Q2H PRN PRN Reason: Nicotine Cravings Last Admin: 11/05/24 20:45 Dose: 4 mg Olanzapine (Olanzapine 5 Mg Tablet) 5 mg PO TID PRN PRN Reason: agitation Thiamine HCl (Thiamine Hcl 100 Mg Tablet) 100 mg PO DAILY [facility] Last Admin: 11/06/24 09:25 Dose: Not Given Allergies Allergies Allergy/AdvReac Type Severity Reaction Status Date / Time trazodone Allergy Unknown Verified 10/31/24 15:19 Assessment & Plan Assessment & Plan (1) Transaminitis: Status: Acute Code(s): R74.01 - Elevation of levels of liver transaminase levels (2) Depression: Status: Acute Code(s): F32.A - Depression, unspecified (3) Suicide ideation: Status: Acute Code(s): R45.851 - Suicidal ideations Plan Patient is a 24-year-old male with only reported medical history of alcohol use in the past (patient states he has been clean for the last 6 months and usually drank 6 pack beer a day), substance use disorder/ cocaine use last dose 3 months ago. Patient also indicates that he vapes nicotine and is accepting NRT at this time. Patient denies any other medical history or surgeries in the past. Patient denies any allergies to anything. Patient provided short answers to questions asked without elaboration. Currently patient denies any active or acute medical problems. The following medical problems were noted: Transaminitis Patient does report history of alcohol use last drink was 6 months prior Patient has been in a sober house for about a week prior to coming into the hospital Repeat hepatic profile and hepatitis testing, may need ultrasound and GI consultation Avoid Tylenol Subclinical hypothyroidism TSH 4.37 and free T4 1.15 Patient does not meet the criteria for treatment with levothyroxine Labs we will need to be repeated in 4-6 weeks No goiter or nodules found on exam with the thyroid gland History of alcohol use disorder Patient reports last drink was 6 months prior No history of seizures or withdrawal Thiamine and folic acid recommended Substance use disorder on Suboxone Confirmation of Suboxone dose needed through pharmacy/nursing Continuation Suboxone per Psychiatry Tobacco Dependence Pt counsled on the benefits of cessation NRT in place Hospitalist will continue to follow to review repeat labs and need for further intervention. We appreciate this consultation! 11/04: Continue tx. Support transition to residential program 11/06: [facility] Reason for continued inpatient stay Substantial Risk for: stable for discharge Time Spent With Patient Time: Total time managing care of this patient today ____ minutes.
[2024-11-06 13:35] LABS: MANUAL DIFF FLAG NO
[2024-11-06 13:37] LABS: Hematocrit 47.3 % (42.0-52.0); Hemoglobin 16.7 g/dl (14.0-18.0); Imm Gran Abs Auto 0.01 X10*3/uL (0.00-0.03); Imm Gran Pct Auto 0.2 % (0.0-0.4); Lymphocytes Absolute Auto 1.1 X10*3/uL (1.2-4.9); Mean Corpuscular HGB Conc 35.3 g/dl (31.0-36.0); Mean Corpuscular Hemoglobin 29.7 pg (27.0-33.0); Mean Corpuscular Volume 84.0 fL (80.0-98.0); NRBC Abs Auto 0.000 X10*3/uL (0.0-0.012); NRBC Pct Auto 0.0 /100WBC (0.0-0.2); Platelet Count 245 X10*3/uL (160-400); Red Blood Count 5.63 X10*6/uL (4.60-5.80); White Blood Count 4.1 X10*3/uL (4.8-10.8)
[2024-11-06 13:53] LABS: Alanine Aminotransferase 100 U/L (0-40); Albumin Level 4.9 g/dL (3.5-5.0); Alkaline Phosphatase 63 U/L (39-117); Aspartate Amino Transferase 37 U/L (5-37); Total Protein 7.1 g/dL (6.5-8.0)
[2024-11-06 20:00] VITALS: BP 131/68; PULSE 65; TEMP 37.1; O2SAT 98
[2024-11-06] MEDS: Buprenorphine/Naloxone 4/1 mg FILM 1 FILM BUCCAL (21:05)
[2024-11-07 08:39] LABS: HBS Num1 0.77 mIU/mL (0-7.99); HBc Num1 0.13 S/CO (0.00-0.79); HBsAGNum1 0.36 S/CO (0.00-0.99); Hepatitis A Antibody IgM 0.21 Index (0-0.79); Hepatitis B Surface Antigen Negative (Negative); ~HepC Num1 0.10 S/CO (0.00-0.79); ~Hepatitis A Antibody IgM Nonreactive (Nonreactive); ~Hepatitis B Surface Antibody NONREACTIVE (Nonreactive); ~Hepatitis C Antibody Nonreactive (Nonreactive)
--- NOTE | 2024-11-07 09:06 | P.DS_ITS ---
DS: Providers Provider Date of admission: 10/31/24 14:17 Primary care physician: Unknown Physician Consults: 10/31/24 16:15 Consult to Hospitalist Routine Comment: Consulting Provider: [facility] [place] Hospitalists Reason For Exam: admission physical 11/02/24 09:37 Addiction Medicine Provider Routine Consulting Provider: Addiction Covering Reason for consultation: Suboxone pt, pt wants increased dosage Has provider been notified: No DS: Diagnosis Discharge Diagnosis (1) Transaminitis: Status: Acute (2) Depression: Status: Acute (3) Suicide ideation: Status: Acute DS: Medications Discharge Medications Home Medications: Home Medications ?Medication ?Instructions ?Recorded ?Confirmed buprenorphine 4 mg-naloxone 1 mg 1 film buccal Q24H 10/31/24 sublingual film (Suboxone) Previous Rx's ?Medication ?Instructions ?Recorded nicotine (polacrilex) 2 mg gum 4 mg buccal Q2H PRN Alen otine 11/06/24 Cravings #0 ea Data Data Completed and Pending Completed studies during hospitalization [Text1]: 11/01/24 11/06/24 08:10 13:25 WBC 4.1 L RBC 5.63 Hgb 16.7 Hct 47.3 MCV 84.0 MCH 29.7 MCHC 35.3 RDW 12.0 Plt Count 245 MPV 9.3 L Immature Gran % (Auto) 0.2 Neut % (Auto) 61.0 Lymph % (Auto) 27.6 [place] % (Auto) 6.3 Eos % (Auto) 4.4 H Baso % (Auto) 0.5 Lymph # (Auto) 1.1 L [place] # (Auto) 0.3 Eos # (Auto) 0.2 Baso # (Auto) 0.0 Abs Immat Gran (auto) 0.01 Absolute Neuts (auto) 2.5 Absolute Nucleated RBC 0.000 Nucleated RBC % (auto) 0.0 Sodium 142 Potassium 4.1 Chloride 106 Carbon Dioxide 28 Anion Gap 12 BUN 13 Creatinine 1.07 Estim Creat Clear Calc 111.8 Estimated GFR > 60 Random Glucose 97 Estimat Average Glucose 103 Hemoglobin A1c % 5.2 Calcium 9.5 Total Bilirubin 0.8 0.6 Direct Bilirubin 0.2 AST 43 H 37 ALT 110 H 100 H Alkaline Phosphatase 55 63 Total Protein 7.0 7.1 Albumin 4.7 4.9 Triglycerides 83 Cholesterol 134 LDL Cholesterol, Calc 72 HDL Cholesterol 46 TSH 4.37 H Free T4 1.15 Hepatitis A IgM Ab Nonreactive Hep Bs Antigen Negative Hep Bs Antibody NONREACTIVE Hep B Core Total Ab Nonreactive Hepatitis C Ab (EIA) Nonreactive DS: Summary Time Spent with Patient Time attestation: Total time managing care of this patient today ____ minutes. Discharge Plan Discharge Anticipated Discharge Date/Time: 11/07/24 12:00 Patient Disposition: Xfer Other Discharge Diagnosis: Depression Opiate Use Disorder, currently on Suboxone Referrals: Physician,Unknown J [Primary Care Provider, Medical] - 1 Week Discharge Medications: New nicotine (polacrilex) 2 mg Gum 4 mg buccal Q2H PRN (Reason: Nicotine Cravings) Qty: 0 0RF Continued buprenorphine-naloxone [Suboxone] 4-1 mg Film 1 film BUCCAL Q24H Patient Comments: has not been picked up yet Rx Instructions: place 1 strip/tab under (each) side of tongue at HS Discharge Orders: Discharge Order (Routine); Ordered 11/07/24 Ordered By: Ruby Saunders Diet: Advance to usual diet Activity on Discharge: As tolerated Stand Alone Forms: Patient Portal Discharge page Print Language: [place] Care Plan Goals: Abstinence from substances Mood and Behavioral Stabilization Health Concerns: Abstinence from substances Mood and Behavioral Stabilization [facility] Assessment: No SI,HI,AH,VH No sx of acute fide or psychosis Pt agrees with plan of care
== END 2024-11-07 11:03 | disposition other institution (70) | DRG 881 ==
PROVIDERS: Nurse Practitioner Family; Admitting Provider Psychiatry & Neurology Psychiatry; Visit Provider Clinical Nurse Specialist Psychiatric/Mental Health, Adult
DX: F32.A Depression, unspecified (principal); F11.20 Opioid dependence, uncomplicated; R45.851 Suicidal ideations; F17.210 Nicotine dependence, cigarettes, uncomplicated; E03.8 Other specified hypothyroidism; Z71.6 Tobacco abuse counseling; F10.90 Alcohol use, unspecified, uncomplicated; R74.01 Elevation of levels of liver transaminase levels; Z79.899 Other long term (current) drug therapy
CPT/HCPCS: 36415; 80053; 80061; 80076; 83036; 84439; 84443; 85025; 86704; 86706; 86709; 86803; 87340

== ENCOUNTER → 2024-10-31 14:17 | Outpatient (BNV) | payer OTHER, SELFPAY | PROVIDERS: Admitting Provider Psychiatry & Neurology Psychiatry; Visit Provider Nurse Practitioner Family | DX: F32.A Depression, unspecified (principal); R45.851 Suicidal ideations | CPT/HCPCS: 90792 ==

== ENCOUNTER → 2024-10-31 14:17 | Outpatient (BNV) | payer OTHER, SELFPAY | PROVIDERS: Admitting Provider Psychiatry & Neurology Psychiatry; Visit Provider Nurse Practitioner Family | DX: R74.01 Elevation of levels of liver transaminase levels (principal) | CPT/HCPCS: 99222 ==